=== PATIENT | female | born 1950 | race Caucasian/White ===

== ENCOUNTER 2019-07-29 18:54 | Emergency (ER) | payer MEDICARE, BC ==
[~2019-07-29] VITALS: Ht 167.6 cm; Wt 61.3 kg
[2019-07-29 20:26] VITALS: BP 145/80
--- NOTE | 2019-07-29 20:51 | PHYS DOC ---
Past Medical History Past Medical History: No Pertinent History (ABIGAIL CONNOR APRN) Past Surgical History: No Surgical History (ABIGAIL CONNOR APRN) Smoking Status: Never Smoker Alcohol Use: None (ABIGAIL CONNOR APRN) Attending Signature I have participated in the care of this patient and I have reviewed and agree with all pertinent clinical information above including history, exam, and recommendations. (SHAKIR DORSEY MD) Adult General Chief Complaint Chief Complaint: FEVER HPI HPI Patient is a 68 year old female who presents with fever, body aches, headache, sore throat, cough and fatigue that started on Friday. The patient took 2 of Advil after she took her fever and it was 104.8 which reduced it down to 103. The patient states that she lives in [facility] and took a bus to [facility] on Friday and Friday and then her daughter came to pick her up to take her to [place] for a visit. (ABIGAIL CONNOR APRN) Review of Systems Review of Systems Constitutional: Reports fever or chills [] Eyes: Denies change in visual acuity, redness, or eye pain [] HENT: Denies nasal congestion or sore throat [] Respiratory: Reports cough and shortness of breath [] Cardiovascular: No additional information not addressed in HPI [] GI: Denies abdominal pain, nausea, vomiting, bloody stools or diarrhea [] : Denies dysuria or hematuria [] Musculoskeletal: Denies back pain or joint pain [] Integument: Denies rash or skin lesions [] Neurologic: Reports headache, denies focal weakness or sensory changes [] Endocrine: Denies polyuria or polydipsia [] Complete systems were reviewed and found to be within normal limits, except as documented in this note. (ABIGAIL CONNOR APRN) Allergies Allergies Allergies Coded Allergies Type Severity Reaction Last Updated Verified Penicillins Allergy Intermediate 07/29/19 Yes (SHAKIR DORSEY MD) Physical Exam Physical Exam Constitutional: Well developed, well nourished, no acute distress, non-toxic appearance. [] HENT: Normocephalic, atraumatic, bilateral external ears normal, oropharynx moist, no oral exudates, nose normal. [] Eyes: PERRLA, EOMI, conjunctiva normal, no discharge. [] Neck: Normal range of motion, no tenderness, supple, no stridor. [] Cardiovascular:Heart rate regular rhythm, no murmur [] Lungs & Thorax: Bilateral breath sounds clear to auscultation [] Neurologic: Alert and oriented X 3, normal motor function, normal sensory function, no focal deficits noted. [] Psychologic: Affect normal, judgement normal, mood normal. [] (ABIGAIL CONNOR APRN) Current Patient Data Vital Signs Vital Signs Date Time Temp Pulse Resp B/P (MAP) Pulse Ox O2 Delivery O2 Flow Rate FiO2 07/29/19 20:26 99.5 104 16 145/80 (101) 95 Room Air 99.5 (SHAKIR DORSEY MD) Lab Values Laboratory Tests Test 07/29/19 20:15 Influenza Type A Antigen Negative (NEGATIVE) Influenza Type B Antigen Negative (NEGATIVE) (SHAKIR DORSEY MD) Lab Values Laboratory Tests Test 07/29/19 20:15 Influenza Type A Antigen Negative (NEGATIVE) Influenza Type B Antigen Negative (NEGATIVE) (ABIGAIL CONNOR APRN) EKG EKG [] (ABIGAIL CONNOR APRN) Radiology/Procedures Radiology/Procedures [][facility] [address] [place] [address] IMAGING REPORT Signed PATIENT: BRYNN ZURITA ACCOUNT: [id number] : 1950 LOCATION: ER AGE: 68 SEX: F EXAM STATUS: REG ER ORD. PHYSICIAN: ABIGAIL CONNOR APRN REASON: fever, cough PROCEDURE: CHEST PA & LATERAL EXAM: PA and Lateral Views of the Chest DATE: 07/29/2019 8:39 PM INDICATION: Fever, coug COMPARISON: No Prior FINDINGS: The heart is not enlarged. Mediastinal and hilar contours are normal. No focal parenchymal airspace opacity. Background of mild emphysematous change. No pleural effusion or pneumothorax. IMPRESSION: 1. No radiographic evidence for acute cardiopulmonary process. Electronically signed by: Sathya Moore MD (07/29/2019 8:53 PM) [id number] DICTATED and SIGNED BY: SATHYA MOORE MD DATE: 07/29/192052 (ABIGAIL CONNOR APRN) Course & Med Decision Making Course & Med Decision Making Pertinent Labs and Imaging studies reviewed. (See chart for details) We will get a flu test, strep, and chest x-ray. Flu, strep, chest x-ray was unremarkable. Discussed the case with the [place] [facility] due to the high fever and the travel of the patient. The [place] [employer] [facility] made the patient a person of investigation. And will see information over to the ER to test. Discussed this with patient and discussed how she needs to be under quarantine until told otherwise. Discussed how the results should be back within 24 to 48 hours. (ABIGAIL CONNOR APRN) Dragon Disclaimer Dragon Disclaimer This electronic medical record was generated, in whole or in part, using a voice recognition dictation system. (ABIGAIL CONNOR APRN) Departure Departure Impression: Primary Impression: Acute viral syndrome Disposition: 01 HOME, SELF-CARE Condition: STABLE Referrals: UNKNOWN PCP NAME (PCP) Patient Instructions: Viral Syndrome Additional Instructions: Thank you for visiting [facility]. We appreciate you trusting us with your care. If any additional problems come up don't hesitate to return to visit us. Please follow up with your primary care provider so they can plan additional care if needed and know about the problem that you had. If symptoms worsen come back to the Emergency Department. Any concerning symptoms that start such as chest pain, shortness of air, weakness or numbness on one side of the body, running high fevers or any other concerning symptoms return to the ER. You have a viral syndrome which may include symptoms like muscle aches, fevers, chills, runny nose, cough, sneezing, sore throat, vomiting, or diarrhea. One of the potential viruses that you may have is SARS-CoV-2, the virus that causes COVID-19, also known as the Coronavirus. You are just as likely to have a different viral infection such as the common cold, flu, etc. Most patients with the Coronavirus have mild symptoms and recover on their own. Resting, staying hydrated, and sleep from known cases can be helpful. As of todays visit, you are well enough to go home and treat your symptoms with oral fluids and over the counter medications. Coronavirus testing is not performed on most people with mild symptoms who are being discharged from the emergency department. If Coronavirus testing was performed the results will not be available for possibly up to 2-3 days. If your result is positive you will be contacted. Please follow the following precautions at home: 1) Stay home except to get medical care. 2) As advised by the CDC we recommend you stay in your home and minimize contact with other people. We do not want you to spread the infection. 3) Those who are older or have significant medical issues may have more severe symptoms from this infection. We recommend self-isolation,FOR AT LEAST 7 DAYS after your 1st day of symptoms. AFTER you feel better please wait AT LEAST ANOTHER WEEK before returning to regular activities and being around other p eople! 4) IF you become sicker and have difficulty breathing, chest pain, unable to eat/drink, severe vomiting, diarrhea, or weakness you may need to return to the Emergency Department. 5) You should restrict activities outside your home, except for getting medical care. DO NOT go to work, school, or public areas. Avoid using public transportation, ride sharing, or taxis. 6) Separate yourself from other people in your home. You should use a separate bathroom if possible. 7) Avoid sharing personal household items such as dishes, cups, eating utensils, towels, etc. 8) Clean all high touch surfaces every day (door knobs, counter tops, etc). Use a household cleaning spray or wipe per label instructions. 9) Clean your hands often. Wash your hands with soap and water for at least 20 seconds. 10) Cover your mouth and nose with a tissue when you cough or sneeze. 11) Throw used tissues in a trash can and immediately wash your hands. For additional resources please visit the CDC website or the [facility] of [facility] ([phone]). ABIGAIL CONNOR APRN Jul 29, 2019 20:51 SHAKIR DORSEY MD Jul 30, 2019 03:13
[2019-07-29 20:53] LABS: INFLUENZA A PATIENT NEGATIVE (NEGATIVE); INFLUENZA B PATIENT NEGATIVE (NEGATIVE)
--- NOTE | 2019-07-29 20:56 | RAD ---
EXAM: PA and Lateral Views of the Chest DATE: 07/29/2019 8:39 PM INDICATION: Fever, coug COMPARISON: No Prior FINDINGS: The heart is not enlarged. Mediastinal and hilar contours are normal. No focal parenchymal airspace opacity. Background of mild emphysematous change. No pleural effusion or pneumothorax. IMPRESSION: 1. No radiographic evidence for acute cardiopulmonary process. Electronically signed by: Sathya Garay MD (07/29/2019 8:53 PM) [id number]
== END 2019-07-30 04:12 | disposition home or self-care (01) ==
LOC: ER 18:54
DX: B34.9 Viral infection, unspecified (principal); R50.9 Fever, unspecified; R51 Headache; R05 Cough; R53.83 Other fatigue; Z88.0 Allergy status to penicillin
CPT/HCPCS: 36415; 71046; 87070; 87804; 87880; 99284